=== PATIENT | male | born 1960 | race Caucasian/White ===

== ENCOUNTER 2016-12-07 20:06 | Emergency (ER) | payer MEDICARE, MEDICAID ==
[2016-12-07] MEDS ORDERED: Cephalexin 500 MG CAP ONE (22:43)
[2016-12-07] MEDS ORDERED: Cipro 250 MG TAB ONE (22:43)
== END 2016-12-07 22:45 | disposition home or self-care (01) ==
LOC: MADERS 20:06
DX: E11.622 Type 2 diabetes mellitus with other skin ulcer (principal); L97.229 Non-pressure chronic ulcer of left calf with unspecified severity; I10 Essential (primary) hypertension; F32.9 Major depressive disorder, single episode, unspecified
CPT/HCPCS: 99282

== ENCOUNTER 2016-12-22 09:29 | Outpatient (CLI) | payer MEDICAID, MEDICARE ==
[2016-12-22 10:32] LABS: Hemoglobin A1c 8.2 % (4.0-6.0)
[2016-12-22 10:40] LABS: #Basophils 0.1 thou/uL (0.0-0.2); #Eosinphils 0.2 thou/uL (0.0-0.7); #Monocytes 0.4 thou/uL (0.11-0.59); #Neutrophils 4.6 thou/uL (1.40-6.50); %Basophils 1.4 % (0.0-1.0); %Eosinophils 2.4 % (0.0-10.0); %Monocytes 5.2 % (0.0-10.0); ALT (SGPT) 28 U/L (8-55); AST (SGOT) 16 U/L (5-34); Albumin 3.8 g/dL (3.5-5.0); Alkaline Phosphatase 97 U/L (40-150); Anion Gap 15 mmol/L (10-20); BUN (Urea Nitrogen) 14 mg/dL (8.4-25.7); Bilirubin, Total 0.5 mg/dL (0.2-1.2); Calc. Creatinine Clearance 0 mL/min (70-130); Calcium 8.7 mg/dL (7.8-10.44); Carbon Dioxide 23 mmol/L (22-29); Chloride 102 mmol/L (98-107); Cholesterol 181 mg/dl (< 200 Desired); Estimated GFR-MDRD 87; Globulin 3.1 g/dL (2.4-3.5); Glucose 206 mg/dL (70-105); HDL Cholesterol 36 mg/dL (>60 Neg Risk); Hemoglobin 13.1 g/dL (14.0-18.0); LDL Cholesterol, Calculated 90 mg/dL; Mean Corpuscular HGB CONC 33.2 g/dL (32.0-36.0); Mean Corpuscular Hemoglobin 28.8 pg (27.0-31.0); Mean Corpuscular Volume 86.7 fl (80.0-94.0); Platelet Count 263 thou/uL (130-400); Potassium 4.2 mmol/L (3.5-5.1); Protein, Total 6.9 g/dL (6.0-8.3); RBC Distribution Width 12.2 % (11.5-14.5); Red Blood Cell (RBC) Count 4.56 mill/uL (4.70-6.10); Sodium 136 mmol/L (136-145); Triglycerides 275 mg/dL (Less than 150); White Blood Cell (WBC) Count 7.3 thou/uL (4.8-10.8)
== END 2016-12-22 09:30 | disposition home or self-care (01) ==
LOC: MADLABBHPM 09:29
PROVIDERS: ATTEND Family Medicine
DX: E11.9 Type 2 diabetes mellitus without complications (principal)
CPT/HCPCS: 36415; 80053; 80061; 83036; 84443; 85025

== ENCOUNTER 2016-12-29 21:15 | Emergency (ER) | payer MEDICARE, MEDICAID ==
[~2016-12-29 21:15] MED LIST: Sodium Chloride 0.9% 1,000 ML BAG ONE
[2016-12-29] MEDS ORDERED: Fentanyl 100 MCG/2 ML VIAL ONE (21:46)
[2016-12-29] MEDS ORDERED: Ketorolac Tromethamine 30 MG/ML VIAL ONE (21:46)
[2016-12-29 21:47] LABS: #Basophils 0.1 thou/uL (0.0-0.2); #Eosinphils 0.2 thou/uL (0.0-0.7); #Lymphocytes 2.6 thou/uL (1.20-3.40); #Monocytes 0.6 thou/uL (0.11-0.59); #Neutrophils 5.2 thou/uL (1.40-6.50); %Basophils 0.9 % (0.0-1.0); %Eosinophils 2.3 % (0.0-10.0); %Lymphocytes 30.5 % (21.0-51.0); %Monocytes 6.3 % (0.0-10.0); %Neutrophils 60.1 % (42.0-75.0); Hemoglobin 13.7 g/dL (14.0-18.0); Mean Corpuscular HGB CONC 34.6 g/dL (32.0-36.0); Mean Corpuscular Hemoglobin 29.3 pg (27.0-31.0); Mean Corpuscular Volume 84.7 fl (80.0-94.0); Mean Platelet Volume 6.6 fL (7.4-10.4); Platelet Count 301 thou/uL (130-400); RBC Distribution Width 12.3 % (11.5-14.5); Red Blood Cell (RBC) Count 4.67 mill/uL (4.70-6.10); White Blood Cell (WBC) Count 8.7 thou/uL (4.8-10.8)
[2016-12-29 21:55] LABS: Clarity Clear (Clear); Leukocyte Negative (Negative); Nitrite Negative (Negative); Protein, Urine (Dipstick) Negative (Neg-Trace)
[2016-12-29 21:56] LABS: Bilirubin Negative (Negative); Blood, Urine Negative (Negative); Glucose, Urine (Dipstick) Negative (Negative); Urobilinogen 0.2 mg/dL (0.2-1.0)
[2016-12-29 22:04] LABS: ALT (SGPT) 32 U/L (8-55); AST (SGOT) 20 U/L (5-34); Albumin 4.1 g/dL (3.5-5.0); Alkaline Phosphatase 100 U/L (40-150); Anion Gap 11 mmol/L (10-20); BUN (Urea Nitrogen) 15 mg/dL (8.4-25.7); Bilirubin, Total 0.6 mg/dL (0.2-1.2); Calc. Creatinine Clearance 0 mL/min (70-130); Calcium 9.1 mg/dL (7.8-10.44); Carbon Dioxide 28 mmol/L (22-29); Chloride 101 mmol/L (98-107); Estimated GFR-MDRD 80; Globulin 3.2 g/dL (2.4-3.5); Glucose 206 mg/dL (70-105); Potassium 4.2 mmol/L (3.5-5.1); Protein, Total 7.3 g/dL (6.0-8.3); Sodium 136 mmol/L (136-145)
--- NOTE | 2016-12-29 22:52 | CT ---
CT OF THE ABDOMEN AND PELVIS 12/29/16 COMPARISON: 06/06/15 HISTORY: Low back pain, trouble urinating. TECHNIQUE: Serial axial CT imaging at 5 mm intervals from lung bases through pubic symphysis without contrast. Coronal reformatted imaging obtained. FINDINGS: The lack of contrast limits assessment of the viscera, bowel, or vascular structures and for lymphad enopathy. The imaged lung bases are unremarkable. cholecystectomy clips are present. No free intrape ritoneal air or fluid. There is diffuse hypodensity of the hepatic parenchyma, evidence of hepatic s teatosis. The spleen, pancreas, adrenal glands, and kidneys are unremarkable. There is no evidence f or obstructive uropathy or nephrolithiasis on either side. The urinary bladder wall is mildly thickened but the urinary bladder is partially decompressed. This could reflect true bladder wall thickening or underdistention. There is diverticulosis of the sigmo id colon and descending colon with no evidence for diverticulitis. No evidence for bowel inflammator y change or obstruction. There is scattered atherosclerotic calcification of the infrarenal abdominal aorta. Osseous structur es demonstrate multilevel degenerative change within the imaged spine, including left lateral osteop hyte formation throughout the imaged thoracic spine and prominent degenerative change at the lumbosa cral junction. IMPRESSION: No evidence for nephrolithiasis or obstructive uropathy. Additional findings as described above. POS: [facility]
== END 2016-12-29 22:25 | disposition home or self-care (01) ==
LOC: MADERS 21:15
DX: M54.5 Low back pain (principal); E11.9 Type 2 diabetes mellitus without complications; I10 Essential (primary) hypertension; M19.90 Unspecified osteoarthritis, unspecified site; F32.9 Major depressive disorder, single episode, unspecified; Z87.891 Personal history of nicotine dependence; Z79.899 Other long term (current) drug therapy; Z79.84 Long term (current) use of oral hypoglycemic drugs
CPT/HCPCS: 74176; 80053; 81003; 85025; 87086; 96374; 96375; J1885; J3010; J7050

== ENCOUNTER 2018-06-06 18:57 | Emergency (ER) | payer MEDICARE, OTHER ==
[2018-06-06] MEDS ORDERED: Ketorolac Tromethamine 30 MG/ML VIAL ONE (19:54)
[2018-06-06] MEDS ORDERED: Cyclobenzaprine 10 MG TAB ONE (19:54)
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
== END 2018-06-06 20:08 | disposition home or self-care (01) ==
LOC: MADERS 18:57
DX: S16.1XXA Strain of muscle, fascia and tendon at neck level, initial encounter (principal); S39.012A Strain of muscle, fascia and tendon of lower back, initial encounter; F03.90 Unspecified dementia, unspecified severity, without behavioral disturbance, psychotic disturbance, mood disturbance, and anxiety; F32.9 Major depressive disorder, single episode, unspecified; Z87.891 Personal history of nicotine dependence; Z79.84 Long term (current) use of oral hypoglycemic drugs; Z79.899 Other long term (current) drug therapy; V43.62XA Car passenger injured in collision with other type car in traffic accident, initial encounter
CPT/HCPCS: 72125; 96374; J1885

== ENCOUNTER 2019-10-13 09:50 | Emergency (ER) | payer MEDICARE ==
[2019-10-13 10:31] LABS: #Basophils 0.1 thou/uL (0.0-0.2); #Eosinphils 0.1 thou/uL (0.0-0.7); #Lymphocytes 3.6 thou/uL (1.20-3.40); #Monocytes 0.4 thou/uL (0.11-0.59); #Neutrophils 4.7 thou/uL (1.40-6.50); %Basophils 0.9 % (0.0-1.0); %Eosinophils 1.3 % (0.0-10.0); %Lymphocytes 40.5 % (21.0-51.0); %Monocytes 4.2 % (0.0-10.0); %Neutrophils 53.1 % (42.0-75.0); Hemoglobin 15.2 g/dL (14.0-18.0); INR-International Normal Ratio 0.9; Mean Corpuscular HGB CONC 30.6 g/dL (32.0-36.0); Mean Corpuscular Hemoglobin 25.8 pg (27.0-31.0); Mean Corpuscular Volume 84.2 fL (78.0-98.0); Mean Platelet Volume 5.9 fL (7.4-10.4); Platelet Count 389 thou/uL (130-400); Prothrombin Time 12.5 SEC (12.0-14.7); RBC Distribution Width 11.9 % (11.5-14.5); Red Blood Cell (RBC) Count 5.88 mill/uL (4.70-6.10); White Blood Cell (WBC) Count 8.8 thou/uL (4.8-10.8)
[2019-10-13 10:32] LABS: PTT 33.9 SEC (22.9-36.1)
--- NOTE | 2019-10-13 10:38 | RAD ---
Portable chest: HISTORY: Chest pain shortness of breath COMPARISON: 10/20/2012 FINDINGS: Lung king are clear. Heart and mediastinum appear unremarkable. Vascularity is normal. Visualized osseous structures unremarkable. IMPRESSION: No acute finding
[2019-10-13 10:42] LABS: ALT (SGPT) 58 U/L (8-55); AST (SGOT) 32 U/L (5-34); Albumin 4.7 g/dL (3.5-5.0); Alkaline Phosphatase 105 U/L (40-110); Anion Gap 15 mmol/L (10-20); BUN (Urea Nitrogen) 11 mg/dL (8.4-25.7); Calc. Creatinine Clearance 0 mL/min (70-130); Calcium 9.9 mg/dL (7.8-10.44); Carbon Dioxide 23 mmol/L (22-29); Chloride 102 mmol/L (98-107); Estimated GFR-MDRD 73; Globulin 3.8 g/dL (2.4-3.5); Glucose 184 mg/dL (70-105); Potassium 4.2 mmol/L (3.5-5.1); Protein, Total 8.5 g/dL (6.0-8.3); Sodium 136 mmol/L (136-145)
--- NOTE | 2019-10-13 10:42 | CT ---
CT head without contrast: Multiple axial tomograms obtained through the head without IV enhancement. INDICATIONS: Left side weakness COMPARISON: None FINDINGS: Ventricles have normal size and position. Mild ischemic white matter change. No evidence of intracranial mass, hemorrhage, edema, or infarct. Visualized sinuses and mastoids appear clear. Bony calvarium appears unremarkable. IMPRESSION: No acute finding
[2019-10-13] MEDS ORDERED: Aspirin Chewable 81 MG TAB ONE (10:58)
== END 2019-10-13 12:12 | disposition short-term general hospital (02) ==
LOC: MADERS 09:50
DX: I63.9 Cerebral infarction, unspecified (principal); G81.94 Hemiplegia, unspecified affecting left nondominant side; I10 Essential (primary) hypertension; E11.9 Type 2 diabetes mellitus without complications; F03.90 Unspecified dementia, unspecified severity, without behavioral disturbance, psychotic disturbance, mood disturbance, and anxiety; M19.90 Unspecified osteoarthritis, unspecified site; N40.0 Benign prostatic hyperplasia without lower urinary tract symptoms; F32.9 Major depressive disorder, single episode, unspecified; Z87.891 Personal history of nicotine dependence; Z79.84 Long term (current) use of oral hypoglycemic drugs; Z79.899 Other long term (current) drug therapy
CPT/HCPCS: 36416; 70450; 71045; 80053; 84484; 85025; 85610; 85730; 93005

== ENCOUNTER 2020-03-19 20:37 | Emergency (ER) | payer MEDICARE ==
[2020-03-19 21:21] LABS: Bilirubin Negative (Negative); Blood, Urine Negative (Negative); Clarity Clear (Clear); Glucose, Urine (Dipstick) Negative (Negative); Ketone, Urine Negative (Negative); Leukocyte Negative (Negative); Nitrite Negative (Negative); Protein, Urine (Dipstick) Negative (Neg-Trace)
[2020-03-19 21:34] LABS: #Basophils 0.1 thou/uL (0.0-0.2); #Eosinphils 0.2 thou/uL (0.0-0.7); #Lymphocytes 3.7 thou/uL (1.20-3.40); #Monocytes 0.7 thou/uL (0.11-0.59); #Neutrophils 4.5 thou/uL (1.40-6.50); %Basophils 0.9 % (0.0-1.0); %Lymphocytes 40.7 % (21.0-51.0); %Monocytes 7.8 % (0.0-10.0); %Neutrophils 48.5 % (42.0-75.0); Hemoglobin 12.8 g/dL (14.0-18.0); Mean Corpuscular HGB CONC 32.2 g/dL (32.0-36.0); Mean Corpuscular Hemoglobin 27.5 pg (27.0-31.0); Mean Corpuscular Volume 85.4 fL (78.0-98.0); Mean Platelet Volume 6.4 fL (7.4-10.4); Platelet Count 365 thou/uL (130-400); Red Blood Cell (RBC) Count 4.65 mill/uL (4.70-6.10); White Blood Cell (WBC) Count 9.2 thou/uL (4.8-10.8)
[2020-03-19 21:47] LABS: Anion Gap 15 mmol/L (10-20); BUN (Urea Nitrogen) 13 mg/dL (8.4-25.7); Calc. Creatinine Clearance 0 mL/min (70-130); Calcium 8.8 mg/dL (7.8-10.44); Carbon Dioxide 23 mmol/L (22-29); Chloride 104 mmol/L (98-107); Estimated GFR-MDRD 85; Glucose 117 mg/dL (70-105); Sodium 138 mmol/L (136-145)
--- NOTE | 2020-03-19 21:54 | CT ---
CT ABDOMEN AND PELVIS WITHOUT ORAL OR IV CONTRAST: 03/19/20 HISTORY: Hematuria, urinary retention. COMPARISON: 12/29/16. FINDINGS: Absence of oral and IV contrast reduces the sensitivity of the exam particularly for the evaluation o f solid organs and bowel. The lung bases are unremarkable. The patient is post cholecystectomy. No free air or free fluid is se en in the abdomen or pelvis. The small bowel loops are not abnormally dilated. There is colonic diver ticulosis without diverticulitis. No calculi is seen in the kidneys, ureters, or the urinary bladder. No hydroureteronephrosis is seen on either side. The prostate is enlarged. There are vascular calcifications without evidence of aneurysmal dilatation of the abdominal aorta. T here are degenerative changes in the spine. Small bilateral fat containing inguinal herniae are prese nt. IMPRESSION: 1. No CT evidence of urinary tract calculi or obstruction. 2. Prostatic enlargement. 3. Colonic diverticulosis without diverticulitis. POS: [facility]
== END 2020-03-19 22:38 | disposition home or self-care (01) ==
LOC: MADERS 20:37
DX: R10.9 Unspecified abdominal pain (principal); N40.0 Benign prostatic hyperplasia without lower urinary tract symptoms; E11.9 Type 2 diabetes mellitus without complications; F03.90 Unspecified dementia, unspecified severity, without behavioral disturbance, psychotic disturbance, mood disturbance, and anxiety; I10 Essential (primary) hypertension; F32.9 Major depressive disorder, single episode, unspecified; F17.210 Nicotine dependence, cigarettes, uncomplicated; F29 Unspecified psychosis not due to a substance or known physiological condition
CPT/HCPCS: 36415; 74176; 80048; 81003; 85025

== ENCOUNTER 2020-05-12 14:48 | Emergency (ER) | payer MEDICARE ==
[2020-05-12 15:09] LABS: #Basophils 0.1 thou/uL (0.0-0.2); #Eosinphils 0.3 thou/uL (0.0-0.7); #Monocytes 0.8 thou/uL (0.11-0.59); %Basophils 1.1 % (0.0-1.0); %Eosinophils 2.8 % (0.0-10.0); %Monocytes 7.8 % (0.0-10.0); %Neutrophils 49.3 % (42.0-75.0); Mean Corpuscular HGB CONC 32.2 g/dL (32.0-36.0); Mean Corpuscular Hemoglobin 27.1 pg (27.0-31.0); Mean Corpuscular Volume 84.3 fL (78.0-98.0); Mean Platelet Volume 6.3 fL (7.4-10.4); Platelet Count 365 thou/uL (130-400); White Blood Cell (WBC) Count 10.2 thou/uL (4.8-10.8)
--- NOTE | 2020-05-12 15:10 | CT ---
Exam: Noncontrast head CT HISTORY: Code stroke. 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 Results study discussed with Darryl Zuñiga 05/12/2020 at 3:02 PM Code CR
[2020-05-12 15:18] LABS: INR-International Normal Ratio 0.9; PTT 33.3 sec (22.9-36.1); Prothrombin Time 12.1 sec (12.0-14.7)
--- NOTE | 2020-05-12 15:20 | RAD ---
Chest one view HISTORY: Altered mental status. Dyspnea. COMPARISON: 10/13/2019. FINDINGS: Cardiac silhouette is magnified by projection. Pulmonary vasculature is unremarkable. Mediastinum is midline allowing for rightward convex curvature of the thoracic spine. No lobar consolidation or evidence of pneumothorax. IMPRESSION : No active cardiopulmonary abnormalities are demonstrated.
[2020-05-12 15:29] LABS: Magnesium 1.7 mg/dL (1.6-2.6)
[2020-05-12 15:31] LABS: ALT (SGPT) 31 U/L (8-55); AST (SGOT) 19 U/L (5-34); Acetaminophen Less than 6.0 mcg/mL (10.0-30.0); Albumin 3.9 g/dL (3.5-5.0); Alcohol Less than 10 mg/dL (Less than 10); Alkaline Phosphatase 98 U/L (40-110); Anion Gap 16 mmol/L (10-20); BUN (Urea Nitrogen) 10 mg/dL (8.4-25.7); Bilirubin, Total 0.6 mg/dL (0.2-1.2); Calc. Creatinine Clearance 0 mL/min (70-130); Calcium 8.8 mg/dL (7.8-10.44); Carbon Dioxide 23 mmol/L (22-29); Chloride 101 mmol/L (98-107); Estimated GFR-MDRD Greater than 90; Globulin 3.2 g/dL (2.4-3.5); Glucose 173 mg/dL (70-105); Potassium 3.8 mmol/L (3.5-5.1); Protein, Total 7.1 g/dL (6.0-8.3); Salicylate Less than 8.0 mg/dL (15.0-30.0); Sodium 136 mmol/L (136-145); Troponin I 0.016 ng/mL (< 0.028)
[2020-05-12 15:34] LABS: CKMB 14.2 ng/mL (0-6.6)
[2020-05-12 16:01] LABS: Bilirubin Negative (Negative); Blood, Urine Negative (Negative); Clarity Clear (Clear); Glucose, Urine (Dipstick) 250 mg/dL (Negative); Ketone, Urine Negative (Negative); Leukocyte Negative (Negative); Nitrite Negative (Negative); Protein, Urine (Dipstick) Negative (Neg-Trace); Urobilinogen 0.2 mg/dL (Less than 2)
[2020-05-12] MEDS ORDERED: Aspirin Chewable 81 MG TAB ONE (16:49)
== END 2020-05-12 16:54 | disposition short-term general hospital (02) ==
LOC: MADERS 14:48
DX: G45.9 Transient cerebral ischemic attack, unspecified (principal); E11.9 Type 2 diabetes mellitus without complications; I10 Essential (primary) hypertension; F17.210 Nicotine dependence, cigarettes, uncomplicated
CPT/HCPCS: 36416; 70450; 71045; 80053; 80307; 81003; 82553; 83605; 83690; 83735; 84443; 84484; 85025; 85610; 85730; 93005; 36415-59

== ENCOUNTER 2020-06-02 16:38 | Emergency (ER) | payer MEDICARE ==
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
== END 2020-06-02 17:36 | disposition home or self-care (01) ==
LOC: MADERS 16:38
DX: S62.336A Displaced fracture of neck of fifth metacarpal bone, right hand, initial encounter for closed fracture (principal); E11.9 Type 2 diabetes mellitus without complications; I10 Essential (primary) hypertension; M19.90 Unspecified osteoarthritis, unspecified site; N40.0 Benign prostatic hyperplasia without lower urinary tract symptoms; F32.9 Major depressive disorder, single episode, unspecified; F17.210 Nicotine dependence, cigarettes, uncomplicated; Z79.84 Long term (current) use of oral hypoglycemic drugs; Z79.82 Long term (current) use of aspirin; Z79.899 Other long term (current) drug therapy; W22.8XXA Striking against or struck by other objects, initial encounter
CPT/HCPCS: 29125

== ENCOUNTER 2020-07-29 10:29 | Outpatient (CLI) | payer MEDICARE ==
--- NOTE | 2020-07-29 10:52 | RAD ---
LEFT HIP 2 VIEWS: HISTORY: Hip pain. FINDINGS: Femoral head contour is normal. No evidence of acute fracture. Minimal spurring from the femoral he ad. IMPRESSION: No acute osseous abnormality. POS: [facility]
--- NOTE | 2020-07-29 10:56 | RAD ---
TWO VIEW CHEST: HISTORY: Hemoptysis. COMPARISON: 05/15/2020. FINDINGS: The lung king appear clear. No evidence of infiltrate or vascular congestion. Heart size upper no rmal and stable. Scoliotic curvature of the thoracic spine to the right is again noted and stable. Pacemaker leads are unchanged. Vertebral bodies of thoracic spine maintain height and alignment. IMPRESSION: No acute process identified. POS: [facility]
== END 2020-07-29 10:30 | disposition home or self-care (01) ==
LOC: MADRAD 10:29
PROVIDERS: ATTEND Family Medicine
DX: M25.552 Pain in left hip (principal); R04.2 Hemoptysis
CPT/HCPCS: 71046

== ENCOUNTER 2020-10-15 17:42 | Emergency (ER) | payer MEDICARE | END 2020-10-15 18:14 | disposition home or self-care (01) | LOC: MADERS 17:42 | DX: L03.031 Cellulitis of right toe (principal); E11.9 Type 2 diabetes mellitus without complications; N40.0 Benign prostatic hyperplasia without lower urinary tract symptoms; I10 Essential (primary) hypertension; F17.210 Nicotine dependence, cigarettes, uncomplicated; Z79.84 Long term (current) use of oral hypoglycemic drugs; Z79.82 Long term (current) use of aspirin; Z79.899 Other long term (current) drug therapy | CPT/HCPCS: 99283 ==

== ENCOUNTER 2021-02-12 17:14 | Outpatient (CLI) | payer MEDICARE ==
[2021-02-12 17:23] LABS: Bilirubin Negative (Negative); Blood, Urine Negative (Negative); Clarity Clear (Clear); Glucose, Urine (Dipstick) Negative (Negative); Ketone, Urine Trace mg/dL (Negative); Leukocyte Negative (Negative); Nitrite Negative (Negative); Protein, Urine (Dipstick) Trace mg/dL (Neg-Trace); pH, Urine 5.5 (5.0-9.0)
[2021-02-12 17:24] LABS: Specific Gravity, Urine 1.029 (1.002-1.036)
[2021-02-12 17:30] LABS: Bacteria/HPF Rare-Few HPF (None Seen); Mucous/LPF 2+ LPF (<2+); RBC/HPF None Seen HPF (0-3); Squamous Epithelial 0-3 HPF (0-3); WBC/HPF None Seen HPF (0-3)
== END 2021-02-12 17:15 | disposition home or self-care (01) ==
LOC: MADLAB 17:14
PROVIDERS: ATTEND Family Medicine
DX: R30.0 Dysuria (principal)
CPT/HCPCS: 81001; 87086

== ENCOUNTER 2021-03-01 17:04 | Emergency (ER) | payer MEDICARE ==
[2021-03-01] MEDS ORDERED: Ondansetron PF 4 MG/2 ML Vial ONE (18:02)
[2021-03-01] MEDS ORDERED: Sodium Chloride 0.9% 1,000 ML ONE (18:02)
[2021-03-01 18:09] LABS: #Basophils 0.1 thou/uL (0.0-0.2); #Eosinphils 0.1 thou/uL (0.0-0.7); #Lymphocytes 2.6 thou/uL (1.20-3.40); #Monocytes 0.7 thou/uL (0.11-0.59); #Neutrophils 4.3 thou/uL (1.40-6.50); %Basophils 0.9 % (0.0-1.0); %Eosinophils 1.6 % (0.0-10.0); %Lymphocytes 33.3 % (21.0-51.0); %Monocytes 9.1 % (0.0-10.0); Mean Corpuscular HGB CONC 32.7 g/dL (32.0-36.0); Mean Corpuscular Hemoglobin 28.1 pg (27.0-31.0); Mean Platelet Volume 6.4 fL (7.4-10.4); Platelet Count 361 thou/uL (130-400); RBC Distribution Width 11.6 % (11.5-14.5); Red Blood Cell (RBC) Count 5.34 mill/uL (4.70-6.10); White Blood Cell (WBC) Count 7.9 thou/uL (4.8-10.8)
[2021-03-01 18:24] LABS: ALT (SGPT) 18 U/L (8-55); AST (SGOT) 15 U/L (5-34); Albumin 4.2 g/dL (3.4-4.8); Alkaline Phosphatase 64 U/L (40-110); Anion Gap 16 mmol/L (10-20); BUN (Urea Nitrogen) 10 mg/dL (8.4-25.7); Bilirubin, Total 1.5 mg/dL (0.2-1.2); Calc. Creatinine Clearance 0 mL/min (70-130); Calcium 9.1 mg/dL (7.8-10.44); Carbon Dioxide 20 mmol/L (23-31); Chloride 104 mmol/L (98-107); Globulin 3.1 g/dL (2.4-3.5); Glucose 91 mg/dL (80-115); Potassium 3.9 mmol/L (3.5-5.1); Protein, Total 7.3 g/dL (5.8-8.1); Sodium 136 mmol/L (136-145)
[2021-03-01 18:25] LABS: Acetaminophen Less than 6.0 mcg/mL (10.0-30.0); Alcohol Less than 10 mg/dL (Less than 10); CK (CPK) 141 U/L (30-200); Magnesium 1.8 mg/dL (1.6-2.6); Salicylate Less than 8.0 mg/dL (15.0-30.0)
[2021-03-01 19:56] LABS: Bilirubin Small (Negative); Blood, Urine Negative (Negative); Clarity Clear (Clear); Glucose, Urine (Dipstick) Negative (Negative); Ketone, Urine 80 mg/dL (Negative); Leukocyte Negative (Negative); Nitrite Negative (Negative); Protein, Urine (Dipstick) Negative (Neg-Trace); Specific Gravity, Urine 1.025 (1.005-1.030); Urobilinogen 0.2 mg/dL (Less than 2)
[2021-03-01 20:05] LABS: Amphetamine Not Detected (NotDetected); Barbiturates Screen Not Detected (NotDetected); Benzodiazepine Screen Not Detected (NotDetected); Cocaine Metabolite Screen Not Detected (NotDetected); Medtox Control Line Valid? VALID (VALID); Methadone Not Detected (NotDetected); Methamphetamine Not Detected (NotDetected); Opiate Screen Not Detected (NotDetected); Oxycodone Screen Not Detected (NotDetected); Phencyclidine (PCP) Not Detected (NotDetected); THC/Cannabinoid Screen Detected (NotDetected); Tricyclic Screen Not Detected (NotDetected)
== END 2021-03-01 22:55 | disposition home or self-care (01) ==
LOC: MADERS 17:04
DX: E86.0 Dehydration (principal); F12.10 Cannabis abuse, uncomplicated; R13.10 Dysphagia, unspecified; R53.83 Other fatigue; R11.2 Nausea with vomiting, unspecified; R53.1 Weakness; E11.9 Type 2 diabetes mellitus without complications; N40.0 Benign prostatic hyperplasia without lower urinary tract symptoms; G62.9 Polyneuropathy, unspecified; F17.210 Nicotine dependence, cigarettes, uncomplicated; M19.90 Unspecified osteoarthritis, unspecified site; Z79.84 Long term (current) use of oral hypoglycemic drugs; Z79.82 Long term (current) use of aspirin; Z79.899 Other long term (current) drug therapy
CPT/HCPCS: 51702; 71045; 80053; 80306; 80307; 81003; 82550; 83735; 83880; 84484; 85025; 93005; 94760; 96361; 96374; J2405; J7050

== ENCOUNTER 2021-06-11 13:51 | Emergency (ER) | payer MEDICARE | END 2021-06-11 14:55 | disposition home or self-care (01) | LOC: MADERS 13:51 | DX: S46.011A Strain of muscle(s) and tendon(s) of the rotator cuff of right shoulder, initial encounter (principal); N40.0 Benign prostatic hyperplasia without lower urinary tract symptoms; F17.210 Nicotine dependence, cigarettes, uncomplicated; W18.30XA Fall on same level, unspecified, initial encounter ==

== ENCOUNTER 2022-01-17 04:48 | Emergency (ER) | payer MEDICARE ==
[2022-01-17] MEDS ORDERED: Nitroglycerin 0.4 MG TAB 1 EACH ONE (04:56)
[2022-01-17] MEDS ORDERED: Lorazepam 2 MG/ML VIAL ONE (05:06)
[2022-01-17 05:30] LABS: Base Excess-Venous 0.6 mmol/L (-2.0 to 3.0); Bicarbonate (HCO3v) 24.6 mmol/L (22.0-28.0); CO2 Tension (PvCO2) 36.8 mmHg (42.0-51.0); Calcium, Ionized 1.17 mmol/L (1.15-1.33); Chloride 105 mmol/L (98-107); Potassium 3.9 mmol/L (3.5-5.1); Sodium 140 mmol/L (138-145); T. Carbon Dioxide 25.8 mmol/L (22.0-28.0); vO2 Saturation-calc 99.8 % (60.0-85.0)
[2022-01-17 05:32] LABS: ALT (SGPT) 17 U/L (8-55); AST (SGOT) 15 U/L (5-34); Acetaminophen Less than 10.0 mcg/mL (10.0-30.0); Albumin 4.2 g/dL (3.4-4.8); Alcohol Less than 10 mg/dL (Less than 10); Alkaline Phosphatase 77 U/L (40-110); Anion Gap 14 mmol/L (10-20); BUN (Urea Nitrogen) 13 mg/dL (8.4-25.7); Bilirubin, Total 0.9 mg/dL (0.2-1.2); Calc. Creatinine Clearance 0 mL/min (70-130); Calcium 9.5 mg/dL (7.8-10.44); Carbon Dioxide 27 mmol/L (23-31); Chloride 103 mmol/L (98-107); Glucose 102 mg/dL (80-115); Magnesium 1.9 mg/dL (1.6-2.6); Protein, Total 7.2 g/dL (5.8-8.1); Salicylate Less than 8.0 mg/dL (15.0-30.0); Sodium 140 mmol/L (136-145)
[2022-01-17 05:33] LABS: Band 1 % (5-11); Hemoglobin 14.4 g/dL (14.0-18.0); Lymphocytes 48 % (21-51); MDiff Complete? YES; Mean Corpuscular Hemoglobin 28.3 pg (27.0-31.0); Mean Corpuscular Volume 85.9 fL (78.0-98.0); Mean Platelet Volume 7.6 fL (7.4-10.4); Monocytes 4 % (0-10); Neutrophil 47 % (42-75); Platelet Count 240 thou/uL (130-400); RBC Distribution Width 11.6 % (11.5-14.5); Red Blood Cell (RBC) Count 5.08 mill/uL (4.70-6.10); White Blood Cell (WBC) Count 6.8 thou/uL (4.8-10.8)
[2022-01-17] MEDS ORDERED: Ondansetron PF 4 MG/2 ML Vial ONE (05:54)
[2022-01-17] MEDS ORDERED: Mag-Al Plus 1200 MG/1200 MG/120 MG/30 ML UDCUP ONE (05:58)
[2022-01-17] MEDS ORDERED: Lidocaine Viscous Sol 2% 15 ml UD Cup ONE (05:58)
[2022-01-17 08:12] LABS: THC/Cannabinoid Screen Detected (NotDetected)
[2022-01-17 08:13] LABS: Amphetamine Not Detected (NotDetected); Barbiturates Screen Not Detected (NotDetected); Benzodiazepine Screen Not Detected (NotDetected); Cocaine Metabolite Screen Not Detected (NotDetected); Medtox Control Line Valid? VALID (VALID); Methadone Not Detected (NotDetected); Methamphetamine Not Detected (NotDetected); Opiate Screen Not Detected (NotDetected); Oxycodone Screen Not Detected (NotDetected); Phencyclidine (PCP) Not Detected (NotDetected); Tricyclic Screen Not Detected (NotDetected)
[2022-01-17] MEDS ORDERED: Ketorolac Tromethamine 30 MG/ML VIAL ONE (08:58)
[2022-01-17] MEDS ORDERED: Iopamidol 370 76% 100 ML VIAL ONE (12:37)
== END 2022-01-17 09:45 | disposition home or self-care (01) ==
LOC: MADERS 04:48
DX: R07.9 Chest pain, unspecified (principal); E11.9 Type 2 diabetes mellitus without complications; I10 Essential (primary) hypertension; F17.210 Nicotine dependence, cigarettes, uncomplicated
CPT/HCPCS: 36415; 71045; 71260; 80053; 80306; 80307; 82330; 82803; 83735; 83880; 84484; 85025; 85379; 93005; 94760; 96374; 96375; J1885; J2060; J2405; Q9967

== ENCOUNTER 2022-12-16 10:14 | Emergency (ER) | payer MEDICARE, OTHER ==
[2022-12-16] MEDS ORDERED: Orphenadrine Citrate 60 MG/2 ML VIAL ONE (10:49)
[2022-12-16] MEDS ORDERED: Lidocaine 4% Patch ONE (10:52)
== END 2022-12-16 11:12 | disposition home or self-care (01) ==
LOC: MADERS 10:14
DX: M54.12 Radiculopathy, cervical region (principal); F17.210 Nicotine dependence, cigarettes, uncomplicated
CPT/HCPCS: 96372; 99283; J2360

== ENCOUNTER 2023-08-14 16:36 | Emergency (ER) | payer OTHER ==
[~2023-08-14 16:36] MED LIST changes: +Iopamidol 370 76% 100 ML VIAL ONE; -Sodium Chloride 0.9% 1,000 ML BAG ONE
[2023-08-14] MEDS ORDERED: Morphine 4 MG/ML VIAL ONE (17:07)
[2023-08-14] MEDS ORDERED: Ondansetron PF 4 MG/2 ML Vial ONE (17:07)
[2023-08-14 17:11] LABS: #Lymphocytes 0.5 thou/uL (1.20-3.40); #Monocytes 0.2 thou/uL (0.11-0.59); %Basophils 0.6 % (0.0-1.0); %Lymphocytes 11.4 % (21.0-51.0); %Monocytes 3.1 % (0.0-10.0); %Neutrophils 84.9 % (42.0-75.0); Hematocrit 44.4 % (42.0-52.0); Hemoglobin 14.5 g/dL (14.0-18.0); Mean Corpuscular HGB CONC 32.6 g/dL (32.0-36.0); Mean Corpuscular Hemoglobin 29.6 pg (27.0-31.0); Mean Corpuscular Volume 90.8 fl (78.0-98.0); Mean Platelet Volume 7.3 fL (7.4-10.4); Platelet Count 300 10x3/uL (130-400); RBC Distribution Width 11.8 % (11.5-14.5); Red Blood Cell (RBC) Count 4.89 mill/uL (4.70-6.10); White Blood Cell (WBC) Count 4.8 10x3/uL (4.8-10.8)
[2023-08-14 17:13] LABS: Prothrombin Time 13.7 sec (12.0-14.7)
[2023-08-14 17:14] LABS: PTT 33.3 sec (22.9-36.1)
[2023-08-14 17:25] LABS: ALT (SGPT) 16 U/L (8-55); AST (SGOT) 15 U/L (5-34); Albumin 4.4 g/dL (3.4-4.8); Alkaline Phosphatase 68 U/L (40-110); Anion Gap 19 mmol/L (10-20); BUN (Urea Nitrogen) 15 mg/dL (8.4-25.7); Bilirubin, Total 1.5 mg/dL (0.2-1.2); Calc. Creatinine Clearance 0 mL/min (70-130); Calcium 9.7 mg/dL (7.8-10.44); Carbon Dioxide 19 mmol/L (23-31); Chloride 105 mmol/L (98-107); Estimated GFR 96; Glucose 154 mg/dL (80-115); Potassium 3.7 mmol/L (3.5-5.1); Protein, Total 7.4 g/dL (5.8-8.1); Sodium 139 mmol/L (136-145)
== END 2023-08-14 19:24 | disposition home or self-care (01) ==
LOC: MADERS 16:36
DX: K40.90 Unilateral inguinal hernia, without obstruction or gangrene, not specified as recurrent (principal); E11.40 Type 2 diabetes mellitus with diabetic neuropathy, unspecified; F17.210 Nicotine dependence, cigarettes, uncomplicated; G30.9 Alzheimer's disease, unspecified; F02.80 Dementia in other diseases classified elsewhere, unspecified severity, without behavioral disturbance, psychotic disturbance, mood disturbance, and anxiety; Z95.0 Presence of cardiac pacemaker; Z86.73 Personal history of transient ischemic attack (TIA), and cerebral infarction without residual deficits
CPT/HCPCS: 74177; 80053; 85025; 85610; 85730; 96374; 96375; J2270; J2405; Q9967

== ENCOUNTER 2024-02-19 21:31 | Emergency (ER) | payer MEDICARE, OTHER ==
[2024-02-19 22:29] LABS: #Basophils 0.1 thou/uL (0.0-0.2); #Eosinphils 0.3 thou/uL (0.0-0.7); #Lymphocytes 1.8 thou/uL (1.20-3.40); #Monocytes 0.6 thou/uL (0.11-0.59); #Neutrophils 3.4 thou/uL (1.40-6.50); %Basophils 1.3 % (0.0-1.0); %Eosinophils 4.1 % (0.0-10.0); %Lymphocytes 29.6 % (21.0-51.0); Hematocrit 37.3 % (42.0-52.0); Mean Corpuscular HGB CONC 32.3 g/dL (32.0-36.0); Mean Corpuscular Hemoglobin 29.2 pg (27.0-31.0); Mean Corpuscular Volume 90.7 fl (78.0-98.0); Platelet Count 260 10x3/uL (130-400); RBC Distribution Width 12.5 % (11.5-14.5); Red Blood Cell (RBC) Count 4.11 mill/uL (4.70-6.10); White Blood Cell (WBC) Count 6.1 10x3/uL (4.8-10.8)
[2024-02-19 22:48] LABS: Acetaminophen Less than 10 mcg/mL (10.0-30.0); Alcohol 16.1 mg/dL (Less than 10); Salicylate Less than 8.0 mg/dL (15.0-30.0)
[2024-02-19 22:50] LABS: Troponin I 0.017 ng/mL (< 0.028)
[2024-02-19 22:54] LABS: ALT (SGPT) 15 U/L (8-55); AST (SGOT) 16 U/L (5-34); Albumin 3.8 g/dL (3.4-4.8); Alkaline Phosphatase 83 U/L (40-110); Anion Gap 13 mmol/L (10-20); BUN (Urea Nitrogen) 11 mg/dL (8.4-25.7); Bilirubin, Total 0.3 mg/dL (0.2-1.2); Calc. Creatinine Clearance 0 mL/min (70-130); Calcium 8.6 mg/dL (7.8-10.44); Carbon Dioxide 21 mmol/L (23-31); Chloride 110 mmol/L (98-107); Estimated GFR 98; Globulin 2.4 g/dL (2.4-3.5); Glucose 123 mg/dL (80-115); Lipase 67 U/L (8-78); Magnesium 1.8 mg/dL (1.6-2.6); Potassium 4.3 mmol/L (3.5-5.1); Protein, Total 6.2 g/dL (5.8-8.1); Sodium 140 mmol/L (136-145)
[2024-02-19 23:17] LABS: Bilirubin Negative (Negative); Blood, Urine Negative (Negative); Clarity Clear (Clear); Glucose, Urine (Dipstick) Negative (Negative); Ketone, Urine Negative (Negative); Leukocyte Negative (Negative); Nitrite Negative (Negative); Protein, Urine (Dipstick) Negative (Neg-Trace); Urobilinogen 0.2 mg/dL (Less than 2)
[2024-02-19 23:25] LABS: CAUTI Indications for Culture Acute Hematuria; RBC/HPF None Seen HPF (0-3); Squamous Epithelial 0-3 HPF (0-3); WBC/HPF None Seen HPF (0-3)
[2024-02-19 23:26] LABS: Amphetamine Not Detected (NotDetected); Barbiturates Screen Not Detected (NotDetected); Benzodiazepine Screen Not Detected (NotDetected); Cocaine Metabolite Screen Not Detected (NotDetected); Methadone Not Detected (NotDetected); Methamphetamine Not Detected (NotDetected); Opiate Screen Not Detected (NotDetected); Oxycodone Screen Not Detected (NotDetected); Phencyclidine (PCP) Not Detected (NotDetected); THC/Cannabinoid Screen Detected (NotDetected); Tricyclic Screen Not Detected (NotDetected); Urine Culture Reflex No No
== END 2024-02-19 23:55 | disposition home or self-care (01) ==
LOC: MADERS 21:31
DX: S00.01XA Abrasion of scalp, initial encounter (principal); E86.0 Dehydration; F12.10 Cannabis abuse, uncomplicated; F10.129 Alcohol abuse with intoxication, unspecified; W19.XXXA Unspecified fall, initial encounter; Y90.0 Blood alcohol level of less than 20 mg/100 ml
CPT/HCPCS: 36415; 70450; 71045; 72125; 72170; 80053; 80306; 80307; 81001; 82550; 83605; 83690; 83735; 83880; 84484; 85025; 96360

== ENCOUNTER 2024-08-05 08:56 | Emergency (ER) | payer OTHER ==
[2024-08-05 10:20] LABS: #Basophils 0.1 thou/uL (0.0-0.2); #Eosinophils 0.4 thou/uL (0.0-0.7); #Lymphocytes 1.7 thou/uL (1.20-3.40); #Monocytes 0.4 thou/uL (0.11-0.59); #Neutrophils 3.3 thou/uL (1.40-6.50); %Basophils 1.6 % (0.0-1.0); %Lymphocytes 29.1 % (21.0-51.0); %Monocytes 7.3 % (0.0-10.0); Hemoglobin 12.9 g/dL (14.0-18.0); Mean Corpuscular HGB CONC 31.5 g/dL (32.0-36.0); Mean Corpuscular Hemoglobin 28.7 pg (27.0-31.0); Mean Corpuscular Volume 91.1 fl (78.0-98.0); Mean Platelet Volume 6.3 fL (7.4-10.4); Platelet Count 272 10x3/uL (130-400); RBC Distribution Width 12.2 % (11.5-14.5); White Blood Cell (WBC) Count 5.9 10x3/uL (4.8-10.8)
[2024-08-05 10:31] LABS: PTT 33.6 sec (22.9-36.1)
[2024-08-05] MEDS ORDERED: Acetaminophen 500 MG TAB ONE (10:31)
[2024-08-05 10:41] LABS: Troponin I Less than 0.010 ng/mL (< 0.028)
[2024-08-05 10:43] LABS: ALT (SGPT) 19 U/L (8-55); AST (SGOT) 18 U/L (5-34); Albumin 4.2 g/dL (3.4-4.8); Alkaline Phosphatase 83 U/L (40-110); Anion Gap 12 mmol/L (10-20); BUN (Urea Nitrogen) 9 mg/dL (8.4-25.7); Bilirubin, Total 0.7 mg/dL (0.2-1.2); Calc. Creatinine Clearance 0 mL/min (70-130); Calcium 9.3 mg/dL (7.8-10.44); Carbon Dioxide 26 mmol/L (23-31); Chloride 104 mmol/L (98-107); Estimated GFR 97; Globulin 2.7 g/dL (2.4-3.5); Glucose 113 mg/dL (80-115); Potassium 4.2 mmol/L (3.5-5.1); Protein, Total 6.9 g/dL (5.8-8.1); Sodium 138 mmol/L (136-145)
[2024-08-05] MEDS ORDERED: diphenhydrAMINE 50 MG/ML VIAL ONE (11:16)
[2024-08-05] MEDS ORDERED: Prochlorperazine 10 MG/2 ML VIAL ONE (11:16)
[2024-08-05] MEDS ORDERED: methylPREDNISolone Sod Succ/PF 125 MG/2 ML VIAL ONE (11:17)
[2024-08-05] MEDS ORDERED: Aspirin Chewable 81 MG TAB ONE (11:17)
== END 2024-08-05 11:54 | disposition short-term general hospital (02) ==
LOC: MADERS 08:56
DX: S09.90XA Unspecified injury of head, initial encounter (principal); S16.1XXA Strain of muscle, fascia and tendon at neck level, initial encounter; R29.818 Other symptoms and signs involving the nervous system; R13.10 Dysphagia, unspecified; E11.9 Type 2 diabetes mellitus without complications; W20.8XXA Other cause of strike by thrown, projected or falling object, initial encounter
CPT/HCPCS: 70450; 71045; 72125; 80053; 84484; 85025; 85610; 85730; 93005; 94760; J0780; J1200; J2919; 96374; 96375

== ENCOUNTER 2024-08-15 14:36 | Inpatient (IN) | payer MEDICARE, OTHER ==
[2024-08-15 17:42] VITALS: BMI 25.2
[2024-08-15] MEDS ORDERED: Acetaminophen 325 MG TAB PO PRN (20:21)
[2024-08-15] MEDS: Atorvastatin Calcium 40 MG TAB PO SCH (20:25)
[2024-08-15] MEDS: Nystatin 500,000 UNITS/5 ML UDCUP SSW SCH (20:25)
[2024-08-16] MEDS: Finasteride 5 MG TAB PO SCH (08:39)
[2024-08-16] MEDS: Tamsulosin HCl 0.4 MG CAP PO SCH (08:39)
[2024-08-16] MEDS: Losartan 25 MG TAB PO SCH (08:39)
[2024-08-16] MEDS: Clopidogrel Bisulfate 75 MG TAB PO SCH (08:39)
[2024-08-16] MEDS: Pantoprazole 40 MG DR.TAB PO SCH (08:39)
[2024-08-16] MEDS: Amlodipine 5 MG TAB PO SCH (08:40)
[2024-08-16] MEDS: Aspirin 81 mg Enteric Coated Tablet PO SCH (08:40)
[2024-08-16] MEDS: Enoxaparin 40 MG (0.4 mL) SYRINGE SC SCH (08:40)
[2024-08-16] MEDS: Cyclobenzaprine 10 MG TAB PO PRN (11:36)
[2024-08-16] MEDS ORDERED: Lantiseptic Ointment 130 GM JAR TOP PRN (17:57)
[2024-08-16] MEDS: traMADol HCl 50 MG TAB PO PRN (20:30)
[2024-08-16] MEDS: Lantiseptic Ointment 130 GM JAR TOP SCH (20:31)
[2024-08-18] MEDS: Cyclobenzaprine 10 MG TAB PO PRN (08:54)
[2024-08-18] MEDS: FLU (Fluad Triv) TS24-25 (65UP)/MF59C/PF 45 MCG/0.5 ML Syringe IM ONE (08:54)
[2024-08-20] MEDS: Fluconazole 100 MG TAB PO SCH (16:58)
[2024-08-21] MEDS: Fluconazole 100 MG TAB PO SCH (08:27)
[2024-08-21] MEDS: Docusate 100 MG CAP PO PRN (12:28)
[2024-08-21] MEDS: Polyethylene Glycol 3350 17 GM Packet PO PRN (12:28)
[2024-08-23 06:16] VITALS: BMI 26.3
[2024-08-23 08:10] VITALS: BP 125/84; TEMP 97.5
== END 2024-08-23 11:20 | disposition home or self-care (01) | DRG 945 ==
LOC: MADMS 17:18
PROVIDERS: ADMIT Family Medicine; ATTEND Family Medicine
PROC: F07Z9ZZ Gait Training/Functional Ambulation Treatment (ICD-10-PCS; principal; 2024-08-15)
DX: R53.81 Other malaise (principal); B37.0 Candidal stomatitis; I69.354 Hemiplegia and hemiparesis following cerebral infarction affecting left non-dominant side; R26.9 Unspecified abnormalities of gait and mobility; M54.2 Cervicalgia; G89.29 Other chronic pain; E11.42 Type 2 diabetes mellitus with diabetic polyneuropathy; M48.04 Spinal stenosis, thoracic region; I69.391 Dysphagia following cerebral infarction; R13.12 Dysphagia, oropharyngeal phase; I10 Essential (primary) hypertension; N40.1 Benign prostatic hyperplasia with lower urinary tract symptoms; R33.8 Other retention of urine; F17.290 Nicotine dependence, other tobacco product, uncomplicated; Z66 Do not resuscitate; Z95.0 Presence of cardiac pacemaker; Z91.81 History of falling; Z79.899 Other long term (current) drug therapy; Z79.82 Long term (current) use of aspirin; Z88.1 Allergy status to other antibiotic agents; Z88.0 Allergy status to penicillin; Z88.8 Allergy status to other drugs, medicaments and biological substances
CPT/HCPCS: 36416; 90653; J1650

== ENCOUNTER 2024-12-25 16:37 | Outpatient (CLI) | payer MEDICARE | END 2024-12-25 16:38 | disposition home or self-care (01) | LOC: MADRAD 16:37 | PROVIDERS: ATTEND Neurological Surgery | DX: M54.12 Radiculopathy, cervical region (principal); R60.0 Localized edema; Z98.1 Arthrodesis status | CPT/HCPCS: 72040 ==